=== PATIENT | male | born 1975 | race Two or more races ===

== ENCOUNTER 2021-10-10 04:44 | Emergency (ER) | payer OTHER ==
[~2021-10-10] VITALS: Ht 175.3 cm; Wt 95.7 kg
[2021-10-10 05:24] VITALS: BP 165/99
== END 2021-10-10 06:08 | disposition left against medical advice (07) ==
LOC: ER 04:44
DX: R10.30 Lower abdominal pain, unspecified (principal); R11.2 Nausea with vomiting, unspecified; R19.7 Diarrhea, unspecified; Z53.21 Procedure and treatment not carried out due to patient leaving prior to being seen by health care provider